=== PATIENT | female | born 1990 | race Caucasian/White ===

== ENCOUNTER 2017-05-24 21:49 | Inpatient (IN) | payer OTHER ==
[2017-05-24] MEDS ORDERED: LIDOCAINE 1% (MPF) 30 ML INJ INJ (23:00)
[2017-05-24] MEDS ORDERED: CARBOPROST 250 MCG INJ IM (23:00)
[2017-05-24] MEDS ORDERED: BUTORPHANOL 2 MG INJ IV (23:00)
[2017-05-24] MEDS ORDERED: OXYTOCIN 30 UNITS/LR 500 ML IV ×2 (23:00)
[2017-05-24] MEDS ORDERED: IBUPROFEN 600 MG TAB PO (23:00)
[2017-05-24] MEDS ORDERED: METHYLERGONOVINE 0.2 MG INJ IM (23:00)
[2017-05-24] MEDS ORDERED: MISOPROSTOL 200 MCG TAB PR (23:00)
[2017-05-25] MEDS: AMPICILLIN 2 GM/NS (PMX) 100 ML IV (00:06)
[2017-05-25] MEDS: LACTATED RINGER'S 1,000 ML IV ×5 (00:11→23:05)
[2017-05-25 00:17] LABS: ADD MAN DIFF? NO
[2017-05-25 00:29] LABS: ABNORMAL IP MESSAGE 1; BASOPHILS % 0.4 % (0.0-2.0); EOSINOPHILS % 0.5 % (0.0-7.0); HEMATOCRIT 35.8 % (37.0-47.0); HEMOGLOBIN 11.6 g/dl (12.0-16.0); LYMPHOCYTES # 1.4 10^3/ul (0.8-2.9); LYMPHOCYTES % 16.6 % (15.0-51.0); MEAN CORPUSCULAR HEMOGLOBIN 28.8 pg (29.0-33.0); MEAN CORPUSCULAR HGB CONC 32.4 g/dl (32.0-37.0); MEAN CORPUSCULAR VOLUME 88.8 fl (82.0-101.0); MEAN PLATELET VOLUME 13.1 fl (7.4-10.4); MONOCYTE # 0.5 10^3/ul (0.3-0.9); NEUTROPHIL # 6.5 10^3/ul (1.6-7.5); PLATELET COUNT 188 10^3/UL (140-415); RED BLOOD COUNT 4.03 10^6/ul (4.20-5.40); RED CELL DISTRIBUTION WIDTH 15.6 % (11.5-14.5)
[2017-05-25 00:29] LABS: WHITE BLOOD COUNT 8.5 10^3/ul (4.8-10.8)
[2017-05-25 00:45] LABS: POSITIVE DIFF @See below
[2017-05-25 00:48] LABS: INR 0.95; PROTIME 12.8 Sec (11.9-14.9)
[2017-05-25 00:49] LABS: PARTIAL THROMBOPLASTIN TIME 27.1 Sec (25.0-35.0)
[2017-05-25 00:52] LABS: ALANINE AMINOTRANSFERASE 16 IU/L (13-69); ALBUMIN 3.1 g/dl (3.3-4.9); ALBUMIN/GLOBULIN RATIO 0.93; ALKALINE PHOSPHATASE 202 IU/L (42-121); ANION GAP 17 (8-16); ASPARTATE AMINO TRANSFERASE 20 IU/L (15-46); BILIRUBIN,INDIRECT 0.2 mg/dl (0-1.1); BILIRUBIN,TOTAL 0.2 mg/dl (0.2-1.3); BLOOD UREA NITROGEN 12 mg/dl (7-20); CALCIUM 9.1 mg/dl (8.4-10.2); CARBON DIOXIDE 21 mmol/L (21-31); CHLORIDE 107 mmol/L (97-110); CREATININE 0.58 mg/dl (0.44-1.00); GLUCOSE 81 mg/dl (70-220); POTASSIUM 3.9 mmol/L (3.5-5.1); SODIUM 141 mmol/L (135-144); TOTAL PROTEIN 6.4 g/dl (6.1-8.1)
[2017-05-25 01:21] LABS: HEPATITIS B SURFACE ANTIGEN NEGATIVE (NEGATIVE)
[2017-05-25] MEDS ORDERED: FENTAnyl 2MCG/ML-ROPIV 0.2% 100 ML (02:45)
[2017-05-25] MEDS ORDERED: NALOXONE (0.4 MG/ML) INJ IV (03:00)
[2017-05-25] MEDS ORDERED: DIPHENHYDRAMINE 50 MG INJ IV (03:00)
[2017-05-25] MEDS ORDERED: ONDANSETRON 4 MG INJ IV (03:00)
[2017-05-25] MEDS ORDERED: AMPICILLIN 1 GM/NS (PMX) 50 ML IV (03:00)
[2017-05-25] MEDS ORDERED: EPHEDrine SULFATE 50 MG/5 ML SYG IV (03:00)
[2017-05-25] MEDS: FENTAnyl 2MCG/ML-ROPIV 0.2% 100 ML BAG EPI ×2 (04:03→15:33)
[2017-05-25] MEDS: OXYTOCIN 30 UNITS/LR 500 ML IV (04:04)
[2017-05-25 22:20] LABS: RAPID PLASMA REAGIN NONREACTIVE (NR)
[2017-05-26] MEDS ORDERED: ACETAMINOPHEN 325 MG TAB PO
[2017-05-26] MEDS: OXYTOCIN 30 UNITS/LR 500 ML IV (00:17)
[2017-05-26] MEDS: LACTATED RINGER'S 1,000 ML IV ×3 (08:05→22:14)
[2017-05-26] MEDS: FENTAnyl 2MCG/ML-ROPIV 0.2% 100 ML BAG EPI (08:19)
[2017-05-26] MEDS ORDERED: ONDANSETRON 4 MG INJ (10:27)
[2017-05-26] MEDS: ONDANSETRON 4 MG INJ IV (10:44)
[2017-05-26] MEDS: DINOPROSTONE 10 MG VAG SUPP VAG (18:51)
[2017-05-27] MEDS: FENTAnyl 2MCG/ML-ROPIV 0.2% 100 ML BAG EPI (03:53)
[2017-05-27] MEDS: LACTATED RINGER'S 1,000 ML IV ×2 (04:55→12:09)
[2017-05-27] MEDS: OXYTOCIN 30 UNITS/LR 500 ML IV ×2 (08:53→22:19)
[2017-05-27] MEDS ORDERED: MISOPROSTOL 200 MCG TAB PR ×2 (09:30→18:30)
[2017-05-27] MEDS ORDERED: CEFAZOLIN 2 GM/50 ML (PMX) 50 ML IVPB (09:30)
[2017-05-27] MEDS ORDERED: METHYLERGONOVINE 0.2 MG INJ IM ×2 (09:30→18:30)
[2017-05-27] MEDS ORDERED: OXYTOCIN 30 UNITS/LR 500 ML IV ×2 (09:30→18:30)
[2017-05-27] MEDS ORDERED: CARBOPROST 250 MCG INJ IM ×2 (09:30→18:30)
[2017-05-27] MEDS: CITRIC ACID/SODIUM CITRATE 15 ML CUP PO (12:09)
[2017-05-27] MEDS: ONDANSETRON 4 MG INJ IV (12:09)
[2017-05-27] MEDS ORDERED: OXYTOCIN 10 UNIT INJ (14:43)
[2017-05-27] MEDS ORDERED: FENTAnyl 50 MCG/ML VIAL ×2 (14:43→14:48)
[2017-05-27] MEDS ORDERED: MEPERIDINE 100 MG INJ (14:47)
[2017-05-27] MEDS ORDERED: morphine SULFATE/PF (10 MG/10 ML) INJ (15:20)
[2017-05-27] MEDS ORDERED: KETOROLAC 30 MG INJ (15:22)
[2017-05-27] MEDS ORDERED: DEXAMETHASONE 4 MG/ML 1 ML INJ (15:22)
[2017-05-27] MEDS ORDERED: METOCLOPRAMIDE 10 MG INJ (15:22)
[2017-05-27] MEDS ORDERED: ONDANSETRON 4 MG INJ (15:22)
[2017-05-27] MEDS ORDERED: ONDANSETRON 4 MG INJ IV (16:00)
[2017-05-27] MEDS ORDERED: HYDROmorphONE 0.5 MG/0.5 ML SYG IV ×2 (16:00)
[2017-05-27] MEDS ORDERED: DIPHENHYDRAMINE 50 MG INJ IV (16:00)
[2017-05-27] MEDS ORDERED: morphine 2 MG INJ IV ×2 (16:00)
[2017-05-27] MEDS ORDERED: NALBUPHINE HCL (10 MG/1 ML) INJ IV (16:00)
[2017-05-27] MEDS ORDERED: ACETAMINOPHEN 500 MG TAB PO (16:00)
[2017-05-27] MEDS ORDERED: NALOXONE (0.4 MG/ML) INJ IV (16:00)
[2017-05-27] MEDS ORDERED: HYDROCODONE/APAP (5/325) TAB PO ×3 (16:00→18:30)
[2017-05-27] MEDS ORDERED: OXYCODONE/ACETAMINOPHEN (5/325) TAB PO (18:30)
[2017-05-27] MEDS ORDERED: LANOLIN 7 GM TUBE TOP (18:30)
[2017-05-27] MEDS: CEFAZOLIN 1 GM/50 ML (PMX) 50 ML IVPB (18:42)
[2017-05-27] MEDS: SENNA/DOCUSATE NA (8.6MG/50MG) TAB PO (21:00)
[2017-05-28] MEDS: LACTATED RINGER'S 1,000 ML IV ×2 (01:16→08:30)
[2017-05-28] MEDS: OXYTOCIN 30 UNITS/LR 500 ML IV ×5 (02:19→14:19)
[2017-05-28] MEDS: KETOROLAC 30 MG INJ IV ×2 (04:54→11:20)
[2017-05-28] MEDS: SENNA/DOCUSATE NA (8.6MG/50MG) TAB PO ×2 (09:10→21:09)
[2017-05-28 10:32] LABS: ADD MAN DIFF? NO
[2017-05-28 10:34] LABS: BASOPHILS % 0.1 % (0.0-2.0); EOSINOPHILS % 0.2 % (0.0-7.0); HEMATOCRIT 28.2 % (37.0-47.0); LYMPHOCYTES # 1.2 10^3/ul (0.8-2.9); LYMPHOCYTES % 13.3 % (15.0-51.0); MEAN CORPUSCULAR HEMOGLOBIN 28.5 pg (29.0-33.0); MEAN CORPUSCULAR HGB CONC 31.9 g/dl (32.0-37.0); MEAN CORPUSCULAR VOLUME 89.2 fl (82.0-101.0); MEAN PLATELET VOLUME 11.9 fl (7.4-10.4); MONOCYTE # 0.5 10^3/ul (0.3-0.9); MONOCYTES % 5.7 % (0.0-11.0); NEUTROPHIL # 7.4 10^3/ul (1.6-7.5); NEUTROPHILS % 80.3 % (39.0-77.0); PLATELET COUNT 112 10^3/UL (140-415); RED BLOOD COUNT 3.16 10^6/ul (4.20-5.40); RED CELL DISTRIBUTION WIDTH 15.5 % (11.5-14.5)
[2017-05-28 10:34] LABS: WHITE BLOOD COUNT 9.2 10^3/ul (4.8-10.8)
[2017-05-28] MEDS: OXYCODONE/ACETAMINOPHEN (5/325) TAB PO (14:58)
[2017-05-28] MEDS: IBUPROFEN 600 MG TAB PO (17:40)
[2017-05-29] MEDS: IBUPROFEN 600 MG TAB PO ×4 (00:59→18:00)
[2017-05-29] MEDS: SENNA/DOCUSATE NA (8.6MG/50MG) TAB PO ×2 (09:08→21:07)
[2017-05-30] MEDS: IBUPROFEN 600 MG TAB PO ×2 (00:10→06:03)
[2017-05-30] MEDS: DIPHTH/TET/ACEL PERTUSS (ADULT) 0.5 ML VIAL IM* (09:00)
[2017-05-30] MEDS: SENNA/DOCUSATE NA (8.6MG/50MG) TAB PO (09:53)
[2017-05-30] MEDS: OXYCODONE/ACETAMINOPHEN (5/325) TAB PO (09:53)
== END 2017-05-30 12:27 | disposition home or self-care (01) | DRG 766 ==
LOC: OBT 21:49 → L-D 05-27 13:40 → PP1 05-27 17:23 → OBT 22:40 → PP1 05-27 17:29 → L-D 22:40 → PP1 05-27 18:12
PROVIDERS: Obstetrics & Gynecology
PROC: 10D00Z1 Extraction of Products of Conception, Low, Open Approach (ICD-10-PCS; principal; 2017-05-27)
PROC: 3E033VJ Introduction of Other Hormone into Peripheral Vein, Percutaneous Approach (ICD-10-PCS; 2017-05-27)
DX: O41.03X0 Oligohydramnios, third trimester, not applicable or unspecified (principal); O48.0 Post-term pregnancy; Z3A.40 40 weeks gestation of pregnancy; Z37.0 Single live birth
CPT/HCPCS: 62319; 76815; 76818; 80053; 85025; 85610; 85730; 86592; 86850; 86900; 86901; 87340; 99464